=== PATIENT | female | born 1995 | race Caucasian/White ===

== ENCOUNTER 2018-03-13 14:35 | Emergency (ER) | payer SELFPAY ==
[~2018-03-13] VITALS: Ht 154.9 cm; Wt 69.0 kg
[2018-03-13] MEDS ORDERED: IBUPROFEN 600MG TABLET PO ONE (15:45)
[2018-03-13 18:40] VITALS: BP 106/67
== END 2018-03-13 18:45 | disposition home or self-care (01) ==
LOC: ER 14:51
DX: S20.219A Contusion of unspecified front wall of thorax, initial encounter (principal); M19.90 Unspecified osteoarthritis, unspecified site; V43.52XA Car driver injured in collision with other type car in traffic accident, initial encounter; Y93.89 Activity, other specified; Y92.488 Other paved roadways as the place of occurrence of the external cause
CPT/HCPCS: 71045; 72040; 81025; 99284; Z7610